=== PATIENT | female | born 1995 | race Caucasian/White ===

== ENCOUNTER 2017-10-06 21:31 | Emergency (ER) | payer BC, MEDICAID ==
[~2017-10-06] VITALS: Ht 157.5 cm; Wt 67.3 kg
[2017-10-06] MEDS ORDERED: MULT-1074 PO (22:13)
[2017-10-06] MEDS ORDERED: metoclopramide 5 mg/ml inj IM ONE (22:40)
[2017-10-06] MEDS ORDERED: diphenhydrAMINE 50 mg/ml inj IM ONE (22:40)
[2017-10-06 22:56] VITALS: BP 115/64
== END 2017-10-06 22:57 | disposition home or self-care (01) ==
LOC: ER 21:31
DX: O99.352 Diseases of the nervous system complicating pregnancy, second trimester (principal); G43.909 Migraine, unspecified, not intractable, without status migrainosus; Z3A.16 16 weeks gestation of pregnancy; Z91.018 Allergy to other foods
CPT/HCPCS: 96372; 99284; J1200; J2765

== ENCOUNTER 2020-12-29 06:17 | Day surgery (SDC) | payer BC, MEDICAID ==
[2020-12-22 16:32] LABS: BASOPHILS % (AUTO) 0.3 % (0-1); EOSINOPHILS # (AUTO) 0.1 X10'3 (0-0.9); EOSINOPHILS % (AUTO) 0.9 % (0-6); LYMPHOCYTES # (AUTO) 2.6 X10'3 (1.1-4.8); LYMPHOCYTES % (AUTO) 18.9 % (21-51); MEAN CORPUSCULAR HEMOGLOBIN 27.6 PG (27.0-31.0); MEAN CORPUSCULAR HGB CONC 32.6 g/dL (33.0-36.5); MEAN CORPUSCULAR VOLUME 84.9 FL (78-98); MONOCYTES # (AUTO) 0.6 X10'3 (0-0.9); MONOCYTES % (AUTO) 4.2 % (2-12); NEUTROPHILS # (AUTO) 10.4 X10'3 (1.8-7.7); NEUTROPHILS % (AUTO) 75.7 % (42-75); PRE OP HEMATOCRIT 40.5 % (35.0-45.0); PRE OP HEMOGLOBIN 13.2 g/dL (12.0-16.0); PRE OP PLATELET COUNT 353 X10'3 (140-440); RED BLOOD COUNT 4.77 X10'6 (4.20-5.60); RED CELL DISTRIBUTION WIDTH 13.5 % (11.5-14.5)
[2020-12-22 16:40] LABS: PRE OP PROTIME 10.3 SECONDS (9.0-12.0)
[2020-12-22 16:44] LABS: ALBUMIN 3.5 G/DL (3.4-5.0); ALBUMIN/GLOBULIN RATIO 0.7 (1.1-1.5); ALKALINE PHOSPHATASE 118 IU/L (46-116); BLOOD UREA NITROGEN 11 MG/DL (7-18); BUN/CREATININE RATIO 15.3 (6.6-38.0); CALCIUM 8.9 MG/DL (8.5-10.1); CHLORIDE 103 MMOL/L (99-107); CREATININE 0.72 MG/DL (0.40-0.90); PRE OP ALT 18 U/L (30-65); PRE OP ANION GAP 10 (8-16); PRE OP AST 12 U/L (10-37); PRE OP BILIRUB, TOTAL 0.3 MG/DL (0.0-1.0); PRE OP GLUCOSE 76 MG/DL (70-104); PRE OP POTASSIUM 3.7 MMOL/L (3.4-5.1); PRE OP SODIUM 140 MMOL/L (135-145); TOTAL PROTEIN 8.3 G/DL (6.4-8.2); eGFR > 90 ML/MIN
[~2020-12-29] VITALS: Ht 152.4 cm; Wt 79.4 kg
[2020-12-29] VITALS (10 sets, daily range): BP systolic 124–145; BP diastolic 68–98
[~2020-12-29 06:17] MED LIST: NO HOME MEDS; diazepam 5mg tablet PO PRN; famotidine 20mg tablet PO ONE; oxymetazoline 15 ML nasal spray NS PRN; ringers solution, lacted 1,000 ML IV SCH
[2020-12-29] MEDS ORDERED: cefTAZidime 1gm inj ONE (06:46)
[2020-12-29] MEDS ORDERED: LIDOcaine 1% W/epiNEPHrine 1:100,000 20ml vial ONE (06:46)
[2020-12-29] MEDS ORDERED: cocaine 4% topical solution 4ml bottle ONE (06:46)
[2020-12-29] MEDS ORDERED: mupirocin 2% ointment 22GM ONE (06:46)
[2020-12-29] MEDS ORDERED: oxymetazoline 15 ML nasal spray NS ONE ×2 (06:47→07:00)
[2020-12-29] MEDS ORDERED: methylPREDNISolone acetate 80mg/ml inj**IM only ONE (06:47)
[2020-12-29] MEDS ORDERED: cocaine 4% topical solution 4ml bottle MM ONE (07:00)
[2020-12-29] MEDS ORDERED: mupirocin 2% cream 15gm TP ONE (07:00)
[2020-12-29] MEDS ORDERED: LIDOcaine 1% W/epiNEPHrine 1:100,000 20ml vial IJ ONE (07:00)
[2020-12-29] MEDS ORDERED: ringers solution, lacted 1,000 ML IV SCH (08:00)
[2020-12-29] MEDS ORDERED: ondansetron/PF 4mg/2ml inj IV PRN (08:00)
[2020-12-29] MEDS ORDERED: proCHLORperazine 10 MG/2 ml inj IV PRN (08:00)
[2020-12-29] MEDS ORDERED: morphine 2 MG/ML inj. syringe IV PRN (08:00)
[2020-12-29] MEDS ORDERED: meperidine/PF 25mg/ml syringe IV PRN ×3 (08:00)
[2020-12-29] MEDS ORDERED: morphine 4 MG/ML inj SYRINge IV PRN (08:00)
[2020-12-29] MEDS ORDERED: sevoflurane 250ml liquid IH ONE (08:00)
[2020-12-29] MEDS ORDERED: midazolam 1 mg/ML 2ml injection ONE (08:01)
[2020-12-29] MEDS ORDERED: fentaNYL/PF 50MCG/1 ML 2ML syringe ONE ×2 (08:01→08:39)
[2020-12-29] MEDS ORDERED: LIDOcaine 2% (20mg/ml) 5ml vial ONE (08:41)
[2020-12-29] MEDS ORDERED: propofol inj 20 ML IV ONE (08:41)
[2020-12-29] MEDS ORDERED: dexamethasone sod phosphate 4mg/ml inj. ONE (08:41)
[2020-12-29] MEDS ORDERED: ondansetron/PF 4mg/2ml inj ONE (08:41)
--- NOTE | 2020-12-29 09:15 | NUR ---
ADMITTED TO PACU FROM OR ACCOMPANIED BY ANESTHESIA. INTIAL PHYSICAL ASSESSMENT DONE AND RECORDED. REPORT RECEIVED FROM ANESTHESIA.
[2020-12-29] MEDS ORDERED: salt irrigation nasal spray 45 ML SPRAY NS PRN (09:20)
--- NOTE | 2020-12-29 10:30 | NUR ---
DISCHARGE CRITERIA MET, DISCHARGE INSTRUCTIONS GIVEN, DEMONSTRATES VERBAL UNDERSTANDING. DISCHARGED HOME IN GOOD CONDITION.
== END 2020-12-29 10:30 | disposition home or self-care (01) ==
LOC: PAS 06:17
PROVIDERS: ATTEND Otolaryngology
DX: J34.2 Deviated nasal septum (principal); J34.3 Hypertrophy of nasal turbinates; F41.9 Anxiety disorder, unspecified; F32.9 Major depressive disorder, single episode, unspecified; F43.10 Post-traumatic stress disorder, unspecified; Z79.899 Other long term (current) drug therapy; Z79.01 Long term (current) use of anticoagulants; Z20.822 Contact with and (suspected) exposure to COVID-19; Z72.89 Other problems related to lifestyle; Z91.018 Allergy to other foods; Z91.048 Other nonmedicinal substance allergy status; Z98.890 Other specified postprocedural states
CPT/HCPCS: 30140; 30520; 36415; 80053; 82948; 85025; 85576; 85610; 85730; 93005; A6402; C9250; J0713; J1040; J1100; J2001; J2250; J2405; J2704; J3010; U0003; U0005; A4618; A7000; J7120